=== PATIENT | female | born 1980 | race Caucasian/White ===

== ENCOUNTER 2019-07-04 00:20 | Emergency (ER) | payer SELFPAY ==
[2019-07-04 00:20] VITALS: BP 131/102; PULSE 114; RESP 32; TEMP 36.8; O2SAT 100
--- NOTE | 2019-07-04 01:23 | ED_ITS ---
HPI - Overdose General Chief Complaint: Overdose Stated Complaint: OD Time Seen by Provider: 07/04/19 00:32 History of Present Illness HPI Narrative: Patient is a 32-year-old female who presents to the ER after overdosing on heroin. She states she thought she was using ice but she was wr travis. She is about 1 buttons worth. Patient received Narcan by EMS. She has no complaints of chest pain or dyspnea. No thoughts of self-harm. Related Data Allergies Allergy/AdvReac Type Severity Reaction Status Date / Time Penicillins Allergy Mild Hives Verified 07/04/19 00:24 Review of Systems Review of Systems: All systems reviewed & are unremarkable except as noted in HPI and below PMFSH Past Medical History Medical History (Updated 07/04/19 @ 01:25 by Herb Chapa MD) Patient denies significant medical history Surgical History Surgical History (Updated 07/04/19 @ 01:24 by Herb Chapa MD) No pertinent past surgical history Social History Social History (Updated 07/04/19 @ 01:24 by Herb Chapa MD) Tobacco type: cigarettes Substance use type: heroin and methamphetamine Exam Narrative: Exam Narrative: GENERAL: Well-appearing, well-nourished, and in no acute distress. HEAD: Normocephalic, atraumatic. EYES: PERRL and EOMI. ENT: Mucous membranes moist. CHEST: Clear to auscultation. No respiratory distress. HEART: Tachycardic and regular. Normal peripheral pulses. EXTREMITIES: Normal range of motion. No edema. SKIN: Warm, dry, multiple scabbed areas from picking at her face and extremities. NEURO: Alert and oriented x3. PSYCH: Normal mood and affect. Course Course Emergency Course: Patient is very pleasant. Has been observed without hypoxia. She is up and ambulatory. She is alert and oriented x3, has called a cab and is ready to leave. Vital Signs Vital signs: Vital Signs Temperature 98.2 F 07/04/19 00:20 Pulse Rate 114 H 07/04/19 00:20 Respiratory Rate 32 H 07/04/19 00:20 Blood Pressure 131/102 H 07/04/19 00:20 Pulse Oximetry 100 07/04/19 00:20 Temperature 98.2 F 07/04/19 00:20 Pulse Rate 114 H 05/17/20 00:20 Respiratory Rate 32 H 07/04/19 00:20 Blood Pressure 131/102 H 07/04/19 00:20 Pulse Oximetry 100 07/04/19 00:20 Discharge Plan Discharge Clinical Impression: Drug overdose Patient Disposition: Home, Self-Care Condition: Stable Instructions: Adult Overdose (ED) Additional Instructions: Avoid illicit drug use as it could result in a second overdose. Overdoses can be fatal. Return to the ER if you have increased shortness of breath, you develop fever over 100.4 ?F, you have additional concerns. Follow-up/Referrals: Harvey Jordan MD [Primary Care Provider] - 1 Week
--- NOTE | 2019-07-04 01:30 | PC.NURSE ---
0120 Patient not in room-clothing gone/ not in waiting room or found outside. Dr Chapa aware--he had plans to dc
== END 2019-07-04 01:30 | disposition home or self-care (01) ==
PROVIDERS: Emergency Provider Emergency Medicine
DX: T40.2X1A Poisoning by other opioids, accidental (unintentional), initial encounter (principal); T40.1X1A Poisoning by heroin, accidental (unintentional), initial encounter
CPT/HCPCS: 99281

== ENCOUNTER 2019-07-09 10:02 | Emergency (ER) | payer SELFPAY ==
--- NOTE | 2019-07-09 10:34 | PC.NURSE ---
1003 pt was brought back to ER room #3 by [employer], vital signs obtained. complaint of swelling to right AC/upper arm related to iv drug abuse. states has been swollen for past 5 days, applied ice but not any better. denies allergies, rates pain 8/10. denies home meds. states has hep c and chronic iv drug use. denies surgeries, states weight is 168, ht is 5'4 . LMP was 3 days ago. states somes 1/2 pack cigarettes a day and uses ice , meth and heroin. V/S=125/71, 98% room air, 96 HR, 16 R, 98.3 T. All information was collected by Shama Andrew, [employer]. 1020 NO NURSE EVALUATION. pt walked out of er department when nurse was going to room. pt stated she was going to tell boyfriend it was going to be awhile. other staff seen patient walking down the road. pt did not return to er. Jaime Elizondo RN
== END 2019-07-09 10:20 | disposition left against medical advice (07) ==
LOC: CHSED 10:06
PROVIDERS: Emergency Provider Emergency Medicine; PCP Family Medicine
DX: Z53.8 Procedure and treatment not carried out for other reasons (principal)
CPT/HCPCS: 99199